=== PATIENT | male | born 1965 | race American Indian/Alaskan Native ===

== ENCOUNTER 2021-01-30 12:49 | Emergency (ER) | payer MEDICAID ==
--- NOTE | 2021-01-30 13:15 | Consultation ---
History of Present Illness - Reason for Consult Consult date: 01/30/21 - History of Present Illness [facility] Consult Note # Demographics Consult Type: Acute Stroke Level 1 (0-4.5 hrs) Patient Location: Emergency Room First Name: Larry Last Name: Dominik Date of : 1965 Age: 56 Gender: Male Facility: [facility] Time of Initial Page ( Time): 01/30/2021, 12:50 Time of Return Call ( Time): 01/30/2021, 12:50 # HPI History: 56yo man who had syncope and fall. He began to have right sided weakness and slurred speech at approx 1200today. BG with EMS 156. BP was 60/40 initially. # Scores Time of exam and NIHSS (): 01/30/2021, 12:55 Level of Consciousness 1a: [0] = Alert; keenly responsive LOC Questions 1b: [0] = Answers both questions correctly LOC Commands 1c: [0] = Performs both tasks correctly Best Gaze 2: [0] = Normal Visual 3: [0] = No visual loss Facial Palsy 4: [0] = Normal symmetrical movements Motor Arm Left 5a: [0] = No drift Motor Arm Right 5b: [1] = Drift Motor Leg Left 6a: [0] = No drift Motor Leg Right 6b: [2] = Some effort against gravity Limb Ataxia 7: [0] = Absent Sensory 8: [0] = Normal Best Language 9: [0] = No aphasia Dysarthria 10: [1] = Coht-io-gskfaysv dysarthria Extinction and Inattention 11: [0] = No abnormality NIHSS Total: 4 # Exam Vitals: vital signs reviewed # PMH-FH-SH Past Medical History: Diabetes stroke TIA residual right weakness, but able to ambulate on his own # Data Glucose: [address]: no bleed # Assessment Impression: Weakness likley due to HoTN and syncope # Plan Thrombolytic/Intervention: NOT IV Thrombolysis or IA Intervention candidate Thrombolytic Exclusion: other (see below) likely not new stroke Intraarterial Exclusion: clinically consistent with small vessel disease Target Blood Pressure: SBP < 220 SBP > 120 Labs: ESR lipid panel Imaging: (urgency: STAT): CT Angiogram Head and CT Angiogram Neck Imaging: (urgency: routine): MRI Brain without contrast Diagnostic Test: echo without bubble study Therapy/Evaluation: NPO until swallow evaluation PT/OT evaluation speech/swallow consultation Medication: aspirin 81 mg daily DVT Prophylaxis: SCD chemical DVT prophylaxis Other: permissive hypertension telemetry monitoring I have discussed my recommendations with the referring provider Disposition: admit
[2021-01-30] MEDS ORDERED: SODIUM CHLORIDE 0.9% 1000 ML 1,000 ML IV ONE (13:28)
--- NOTE | 2021-01-30 13:36 | Cat Scan Report ---
CT head/brain wo con INDICATION: Stroke symptoms. TECHNIQUE: Routine CT head. All CT scans at this location are performed using CT dose reduction for A CASSIDY by means of automated exposure control. COMPARISON: None. FINDINGS: Intracranial: Loss of parrish-white differentiation in the left posterior parietal lobe, image 22 series 6. Large quantity of periventricular and centrum semiovale white matter hypoattenuation most consist ent with sequela of chronic microvascular disease. Encephalomalacia involving the left putamen likely from remote hemorrhage. No extra axial collection. No hydrocephalus. No herniation. Sinuses: Paranasal sinuses and mastoid air cells are essentially clear. Orbits: Globes are intact. Calvarium: No acute fracture. IMPRESSION: 1. Left posterior parietal infarction. 2. Severe white matter disease which is also centimeters for age sequela of chronic microvascular dis ease. Informed the doctor 1231. Signer Name: Piter Kelly MD Signed: 01/30/2021 1:31 PM Workstation Name: [id number]
--- NOTE | 2021-01-30 13:47 | Emergency Department Report ---
ED Neuro Deficit HPI - General Stated Complaint: STROKE Time Seen by Provider: 01/30/21 13:12 - History of Present Illness Initial Comments: 56-year-old male, history of hypertension, presents to ED as a stroke alert. Patient was discharged from [facility] 4 days ago following 2-week admission for hemorrhagic CVA. Patient had right-sided deficits from that stroke. Today, patient got up to go to the bathroom, felt dizzy, and had a syncopal episode. EMS was called. They report patient was hypotensive with blood pressure of 60/40 on scene. IV fluids were administered. Patient reported that his right arm and leg, his previously affected side, felt heavier than usual. Patient reports numbness on the right side as well which has been present since his previous diagnosis of hemorrhagic CVA. Patient also had his front teeth knocked out during the fall. Patient denies any vomiting, diarrhea, fever, abdominal pain. -: hour(s) (1) Location: right arm, right leg Presenting Symptoms: Present: Weak/Paralyzed One Side History of same: Yes Place: home Severity: moderate Quality: weak, numb, tingling Improves With: none Worsens With: none Associated Symptoms: syncope. denies: chest pain, fever/chills, headaches, nausea/vomiting Treatments Prior to Arrival: other (IV fluids) - Related Data Allergies/Adverse Reactions: Allergies Allergy/AdvReac Type Severity Reaction Status Date / Time No Known Allergies Allergy Unverified 01/30/21 14:46 ED Review of Systems ROS: Stated complaint: STROKE Other details as noted in HPI Comment: All other systems reviewed and negative Constitutional: denies: chills, fever Respiratory: denies: shortness of breath Cardiovascular: denies: chest pain Gastrointestinal: denies: abdominal pain, nausea, vomiting, diarrhea Neurological: as per HPI ED Neuro Physical Exam - General General appearance: alert, in no apparent distress Suspected Stroke: Yes - Head Head exam: Present: atraumatic, normocephalic - Eye Eye exam: Present: normal appearance - ENT ENT exam: Present: other (tooth #9 missing, no active bleeding; tooth #8 is loose; 2 cm chin laceration) - Neck Neck exam: Present: normal inspection - Respiratory Respiratory exam: Present: normal lung sounds bilaterally. Absent: respiratory distress - Cardiovascular Cardiovascular Exam: Present: regular rate, normal rhythm - GI/Abdominal GI/Abdominal exam: Present: soft. Absent: distended, tenderness - Extremities Exam Extremities exam: Present: normal inspection - Neurological Exam Neurological exam: Present: alert, oriented X3 - NIHSS Assessment Interval: Baseline 1a. Level of Consciousness: alert/keenly responsive 1b. LOC Questions: answers both correctly 1c. LOC Commands: performs tasks correctly 2. Best Gaze: normal 3. Visual: no visual loss 4. Facial Palsy: normal symmetrical movement 5b. Motor Arm Right: drift 5a. Motor Arm Left: no drift 6a. Motor Leg Left: no drift 6b. Motor Leg Right: some gravity effort 7. Limb Ataxia: absent 8. Sensory: normal 9. Best Language: no aphasia 10. Dysarthria: mild/moderate dysarthria 11. Extinction/Inattention: no abnormality Total Score: 4 Stroke Severity: Minor Stroke - Psychiatric Psychiatric exam: Present: normal affect, normal mood - Skin Skin exam: Present: warm, dry, intact, normal color ED Course Vital Signs 01/30/21 01/30/21 01/30/21 12:57 13:15 13:31 Temperature 98.3 F Pulse Rate 74 76 Pulse Rate [ Lying] Pulse Rate [ Sitting] Pulse Rate [ Standing] Respiratory 15 20 Rate Blood Pressure 110/74 121/73 111/73 Blood Pressure [Lying] Blood Pressure [Right] Blood Pressure [Sitting] Blood Pressure [Standing] O2 Sat by Pulse 99 99 Oximetry 01/30/21 01/30/21 01/30/21 13:33 13:45 13:56 Temperature Pulse Rate 69 69 Pulse Rate [ 73 Lying] Pulse Rate [ 73 Sitting] Pulse Rate [ 74 Standing] Respiratory 16 16 Rate Blood Pressure 106/66 Blood Pressure 111/73 [Lying] Blood Pressure [Right] Blood Pressure 110/71 [Sitting] Blood Pressure 106/66 [Standing] O2 Sat by Pulse 96 95 Oximetry 01/30/21 01/30/21 01/30/21 13:57 14:01 14:15 Temperature 97.5 F L Pulse Rate 70 71 Pulse Rate [ Lying] Pulse Rate [ Sitting] Pulse Rate [ Standing] Respiratory 21 17 Rate Blood Pressure 117/76 117/76 Blood Pressure [Lying] Blood Pressure [Right] Blood Pressure [Sitting] Blood Pressure [Standing] O2 Sat by Pulse 97 95 Oximetry 10/25/21 10/25/21 10/25/21 14:31 15:31 15:45 Temperature Pulse Rate 72 71 71 Pulse Rate [ Lying] Pulse Rate [ Sitting] Pulse Rate [ Standing] Respiratory 12 14 16 Rate Blood Pressure 121/81 125/83 125/83 Blood Pressure [Lying] Blood Pressure [Right] Blood Pressure [Sitting] Blood Pressure [Standing] O2 Sat by Pulse 97 96 97 Oximetry 01/30/21 01/30/21 01/30/21 16:01 16:15 16:45 Temperature Pulse Rate 72 77 78 Pulse Rate [ Lying] Pulse Rate [ Sitting] Pulse Rate [ Standing] Respiratory 10 L 18 19 Rate Blood Pressure 125/93 125/93 142/91 Blood Pressure [Lying] Blood Pressure [Right] Blood Pressure [Sitting] Blood Pressure [Standing] O2 Sat by Pulse 95 97 97 Oximetry 01/30/21 01/30/21 01/30/21 17:01 17:31 17:36 Temperature 98.5 F Pulse Rate 80 82 82 Pulse Rate [ Lying] Pulse Rate [ Sitting] Pulse Rate [ Standing] Respiratory 20 20 20 Rate Blood Pressure 139/89 147/93 Blood Pressure [Lying] Blood Pressure 147/93 [Right] Blood Pressure [Sitting] Blood Pressure [Standing] O2 Sat by Pulse 98 98 98 Oximetry - Laceration /Wound Repair Face Wound Location: face Wound Length (cm): 2 Wound's Depth, Shape: into muscle Wound Explored: clean Irrigated w/ Saline (ccs): 50 Anesthesia: Lidocaine w/ Epi Volume Anesthetic (ccs): 2 Wound Repaired With: sutures Suture Size/Type: 3:0 Number of Sutures: 4 (vicryl) - Lab Data Result diagrams: 01/30/21 13:51 01/30/21 13:50 Lab Results 01/30/21 01/30/21 01/30/21 Range/Units 13:50 13:50 13:51 WBC 6.5 (4.5-11.0) K/mm3 RBC 4.44 (3.65-5.03) M/mm3 Hgb 13.1 (11.8-15.2) gm/dl Hct 39.5 (35.5-45.6) % MCV 89 (84-94) fl MCH 30 (28-32) pg MCHC 33 (32-34) % RDW 14.1 (13.2-15.2) % Plt Count 186 (140-440) K/mm3 Lymph % (Auto) 17.6 (13.4-35.0) % [place] % (Auto) 7.2 (0.0-7.3) % Eos % (Auto) 0.7 (0.0-4.3) % Baso % (Auto) 0.4 (0.0-1.8) % Lymph # (Auto) 1.1 L (1.2-5.4) K/mm3 [place] # (Auto) 0.5 (0.0-0.8) K/mm3 Eos # (Auto) 0.0 (0.0-0.4) K/mm3 Baso # (Auto) 0.0 (0.0-0.1) K/mm3 Seg Neutrophils % 74.1 H (40.0-70.0) % Seg Neutrophils # 4.8 (1.8-7.7) K/mm3 PT 13.6 (12.2-14.9) Sec. INR 0.94 (0.87-1.13) APTT 27.6 (24.2-36.6) Sec. Thrombin Time 18.2 (15.1-19.6) Sec. Sodium 141 (137-145) mmol/L Potassium 4.3 (3.6-5.0) mmol/L Chloride 103.7 (98-107) mmol/L Carbon Dioxide 25 (22-30) mmol/L Anion Gap 17 mmol/L BUN 13 (9-20) mg/dL Creatinine 0.9 (0.8-1.3) mg/dL Estimated GFR > 60 ml/min BUN/Creatinine Ratio 14 % Glucose 116 H (75-100) mg/dL POC Glucose (70-105) mg/dL Calcium 8.7 (8.4-10.2) mg/dL Total Bilirubin 0.40 (0.1-1.2) mg/dL Direct Bilirubin < 0.2 (0-0.2) mg/dL Indirect Bilirubin 0.2 mg/dL AST 30 (5-40) units/L ALT 94 H (7-56) units/L Alkaline Phosphatase 51 (35-129) units/L Total Creatine Kinase 85 (55-170) units/L CK-MB (CK-2) 1.0 (0.0-4.0) ng/mL CK-MB (CK-2) Rel Index 1.1 (0-4) Troponin T < 0.010 (0.00-0.029) ng/mL Total Protein 7.0 (6.3-8.2) g/dL Albumin 4.0 (3.9-5) g/dL Albumin/Globulin Ratio 1.3 % 01/30/21 Range/Units 14:22 WBC (4.5-11.0) K/mm3 RBC (3.65-5.03) M/mm3 Hgb (11.8-15.2) gm/dl Hct (35.5-45.6) % MCV (84-94) fl MCH (28-32) pg MCHC (32-34) % RDW (13.2-15.2) % Plt Count (140-440) K/mm3 Lymph % (Auto) (13.4-35.0) % [place] % (Auto) (0.0-7.3) % Eos % (Auto) (0.0-4.3) % Baso % (Auto) (0.0-1.8) % Lymph # (Auto) (1.2-5.4) K/mm3 [place] # (Auto) (0.0-0.8) K/mm3 Eos # (Auto) (0.0-0.4) K/mm3 Baso # (Auto) (0.0-0.1) K/mm3 Seg Neutrophils % (40.0-70.0) % Seg Neutrophils # (1.8-7.7) K/mm3 PT (12.2-14.9) Sec. INR (0.87-1.13) APTT (24.2-36.6) Sec. Thrombin Time (15.1-19.6) Sec. Sodium (137-145) mmol/L Potassium (3.6-5.0) mmol/L Chloride (98-107) mmol/L Carbon Dioxide (22-30) mmol/L Anion Gap mmol/L BUN (9-20) mg/dL Creatinine (0.8-1.3) mg/dL Estimated GFR ml/min BUN/Creatinine Ratio % Glucose (75-100) mg/dL POC Glucose 113 H (70-105) mg/dL Calcium (8.4-10.2) mg/dL Total Bilirubin (0.1-1.2) mg/dL Direct Bilirubin (0-0.2) mg/dL Indirect Bilirubin mg/dL AST (5-40) units/L ALT (7-56) units/L Alkaline Phosphatase (35-129) units/L Total Creatine Kinase (55-170) units/L CK-MB (CK-2) (0.0-4.0) ng/mL CK-MB (CK-2) Rel Index (0-4) Troponin T (0.00-0.029) ng/mL Total Protein (6.3-8.2) g/dL Albumin (3.9-5) g/dL Albumin/Globulin Ratio % - EKG Data -: EKG Interpreted by Nm EKG shows normal: sinus rhythm, intervals, QRS complexes, ST-T waves Rate: normal Interpretation: other (LAFB) - Radiology Data Radiology results: report reviewed, image reviewed - Medical Decision Making 56-year-old male presents to ED for syncopal episode. Patient initially reported that he was having increased weakness and his right side. Patient had a 2-week admission for hemorrhagic CVA resulting in right-sided deficits. Patient was discharged from the hospital 4 days ago after undergoing full work- up. Patient has syncopal episode today. Upon EMS arrival blood pressure was 60/30. Stroke alert was called, patient was seen and evaluated by teleneurologist who felt that patient's symptoms likely related to hypotension. Patient has been given IV fluids and is reporting that his right-sided weakness is currently at baseline, feeling the same as he did upon discharge from the hospital [address] head shows left posterior parietal infarct. CTA head and neck are negative for any large vessel occlusions. During syncopal episode, patient sustained loss of left front tooth and laceration to the chin. Laceration repair was done. Patient advised to follow-up with the dentist tomorrow. I do not believe patient needs to be admitted at this time. Syncopal episode secondary to orthostatic hypotension, as patient was orthostatic here in the ED as well. Patient feels comfortable with discharge at this time. Outpatient follow-up advised, return precautions given. - Differential Diagnosis Dehydration, CVA, arrhythmia Critical care attestation.: If time is entered above; I have spent that time in minutes in the direct care of this critically ill patient, excluding procedure time. ED Disposition Clinical Impression: Tooth avulsion, Chin laceration, Orthostatic syncope Disposition: 01 HOME / SELF CARE / HOMELESS Is pt being admited?: No Condition: Stable Instructions: Tooth Displacement, Laceration Care, Adult, Tooth Injuries, [id number], Syncope, [id number], Syncope (ED) Referrals: [facility] [Outside] - 3-5 Days PRIMARY CARE, [Primary Care Provider] - 3-5 Days [facility] [Provider Group] - 3-5 Days ELYSE ALICEA MD [Staff Physician] - 3-5 Days Time of Disposition: 17:12
--- NOTE | 2021-01-30 13:49 | Cat Scan Report ---
CT angio head, CT angio neck HISTORY: stroke symptoms OMNI 350 100ML COMPARISON: None. TECHNIQUE: CTA of the neck and head is performed after IV contrast. 3-D/MIP reformats were postproces sed. Percentage stenosis is determined by direct quantitative measurements of diseased internal pearl tid artery diameter compared with normal distal internal carotid artery reference segments or by crit erelizabeth similar to NASCET where applicable. All CT scans at this location are performed using CT dose re duction for ALARA by means of automated exposure control. FINDINGS: CTA NECK: Aortic arch: No significant abnormality. Cervical vertebral arteries: No occlusion or hemodynamically significant stenosis. Common Carotid arteries: No occlusion or hemodynamically significant stenosis. Internal carotid arteries: No occlusion or hemodynamically significant stenosis. Small quantity of gas seen within the neck vasculature related to injection. CTA HEAD: Intracranial internal carotid arteries: No occlusion or significant stenosis. Anterior cerebral arteries: No occlusion or significant stenosis. Middle cerebral arteries: No occlusion or significant stenosis. Intracranial vertebral arteries: No occlusion or significant stenosis. Basilar artery: No occlusion or significant stenosis. Posterior cerebral arteries: No occlusion or significant stenosis. No aneurysm. Additional findings: Loss of parrish-white differentiation left posterior parietal lobe consistent with acute infarction as described on prior CT head. IMPRESSION: 1. CTA NECK: No occlusion or significant stenosis of the carotid or vertebral arteries. 2. CTA HEAD: No occlusion or significant stenosis of the major intracranial vasculature. Informed Dr Mahmood about the results of these stroke studies because Dr. Rose was unavailable. Signer Name: Piter Kelly MD Signed: 01/30/2021 1:44 PM Workstation Name: [id number]
[2021-01-30 14:26] LABS: Basophils % (Auto) 0.4 % (0.0-1.8); Eosinophils % (Auto) 0.7 % (0.0-4.3); Hematocrit 39.5 % (35.5-45.6); Hemoglobin 13.1 gm/dl (11.8-15.2); Lymphocytes # (Auto) 1.1 K/mm3 (1.2-5.4); Lymphocytes % (Auto) 17.6 % (13.4-35.0); Mean Corpuscular HGB Conc 33 % (32-34); Mean Corpuscular Volume 89 fl (84-94); Monocytes # (Auto) 0.5 K/mm3 (0.0-0.8); Monocytes % (Auto) 7.2 % (0.0-7.3); Platelet Count 186 K/mm3 (140-440); Red Blood Count 4.44 M/mm3 (3.65-5.03); Red Cell Distribution Width 14.1 % (13.2-15.2)
[2021-01-30 14:52] LABS: Alanine Aminotransferase 94 units/L (7-56); BUN/Creatinine Ratio 14; Blood Urea Nitrogen 13 mg/dL (9-20); Calcium 8.7 mg/dL (8.4-10.2); Hemolysis Index 5
[2021-01-30 15:21] LABS: Bilirubin,Direct < 0.2 mg/dL (0-0.2)
[2021-01-30 15:33] LABS: INR 0.94 (0.87-1.13)
[2021-01-30 15:34] LABS: Thrombin Time 18.2 Sec. (15.1-19.6)
[2021-01-30] MEDS ORDERED: LIDOCAINE 1%/EPINEPHRINE 1:100,000 VIAL (20 ML) INFILTRATI ONE (16:36)
[2021-01-30 17:35] VITALS: BP 147/93
[2021-01-30 17:37] LABS: Partial Thromboplastin Time 27.6 Sec. (24.2-36.6)
--- NOTE | 2021-01-31 19:01 | Electrocardiograph Report ---
[facility] Test Date: 2021-01-30 Test Time: 13:19:23 Pat Name: PHILIPP TIJERINA Department: Room: Gender: M Senior Materials Scientist: ANIL : 1965 Requested By: LYNDA TERESA Order Number: [id number] Reading MD: Simi Golden Measurements Intervals [place]es Rate: 68 P: 57 WI: 184 QRS: -46 QRSD: 106 T: 15 QT: 393 QTc: 419 Interpretive Statements Sinus rhythm LAD, consider left anterior fascicular block Nonspecific T wave abnormality No previous ECG available for comparison Electronically Signed On 01-31-2021 19:01:39 EDT by Simi Golden
== END 2021-01-30 18:27 | disposition home or self-care (01) ==
LOC: ED 12:49
DX: S01.81XA Laceration without foreign body of other part of head, initial encounter (principal); S03.2XXA Dislocation of tooth, initial encounter; R55 Syncope and collapse; W18.39XA Other fall on same level, initial encounter; Y93.89 Activity, other specified; Y92.89 Other specified places as the place of occurrence of the external cause; Y99.8 Other external cause status
CPT/HCPCS: 12011; 36415; 70450; 70496; 70498; 80048; 80076; 82550; 82553; 82962; 84484; 85025; 85610; 85670; 85730; 93005; 96360; 99284; J7030; Q9967